=== PATIENT | male | born 1995 | race Two or more races ===

== ENCOUNTER 2022-09-29 17:07 | Emergency (ER) | payer MEDICAID ==
[~2022-09-29] VITALS: Ht 172.7 cm; Wt 62.9 kg
[2022-09-29 17:15] VITALS: BP 136/79; PULSE 72; RESP 18; O2SAT 100
== END 2022-09-29 20:47 | disposition left against medical advice (07) ==
LOC: ER 17:07
DX: S61.431A Puncture wound without foreign body of right hand, initial encounter (principal); H93.13 Tinnitus, bilateral; Z53.21 Procedure and treatment not carried out due to patient leaving prior to being seen by health care provider; W39.XXXA Discharge of firework, initial encounter; Y93.89 Activity, other specified; Y92.89 Other specified places as the place of occurrence of the external cause; Y99.8 Other external cause status